=== PATIENT | male | born 1950 | race Caucasian/White ===

== ENCOUNTER → 2017-05-29 | Outpatient (CLI) | payer BC, MEDICARE ==
[~2017-05-29] MED LIST: ACET325 PO; ASPI325 PO; Aspirin EC325 MG PO; BYETTA; Bactrim Ds Tab1 EACH PO; Budeprion Sr150 MG PO; CYAN1000 PO; DOCSEN PO; DULO30 PO; FISH1000 PO; GABA300 PO; HYDCHL12.5 PO; Humalog100 UNIT/1 SC; INSULANPEN SC; LAVAP17G PO; LEVFLO500 PO; LISI20 PO; METF850 PO; METO50 PO; Oxycodone HCl5 M1 PO; PANT40 PO; SILD50TA; Silvadene20 GM TOP; TRAM50 PO; TRAZ100 PO
[2017-05-29 13:01] LABS: BASOPHILS ABSOLUTE AUTO 0.05 K/mm3 (0.00-0.23); BASOPHILS PERCENT AUTO 1 % (0-2); EOSINOPHILS ABSOLUTE AUTO 0.13 K/mm3 (0.00-0.68); EOSINOPHILS PERCENT AUTO 2 % (0-6); IMMATURE GRAN ABSOLUTE AUTO 0.01 K/mm3 (0.00-0.10); IMMATURE GRAN PERCENT AUTO 0 % (0-1); LYMPHOCYTES ABSOLUTE AUTO 1.25 K/mm3 (0.84-5.20); LYMPHOCYTES PERCENT AUTO 22 % (21-46); MONOCYTES ABSOLUTE AUTO 0.44 K/mm3 (0.16-1.47); MONOCYTES PERCENT AUTO 8 % (4-13); Mean Corpuscular HGB 25.3 pg (26.0-34.0); Mean Corpuscular HGB Conc 32.5 g/dL (31.5-36.5); Mean Corpuscular Volume 78 fL (80-100); Mean Platelet Volume 8.8 fL (9.1-12.4); NEUTROPHILS ABSOLUTE AUTO 3.75 K/mm3 (1.96-9.15); NEUTROPHILS PERCENT AUTO 67 % (41-73); Platelet Count 213 K/mm3 (150-400); RDW Coefficient Variation 14.6 % (11.7-14.2); RDW Standard Deviation 40.7 fL (35.1-46.3); Red Blood Cell Count 5.13 M/mm3 (4.30-5.90); White Blood Cell Count 5.63 K/mm3 (4.00-11.30)
[2017-05-29 13:11] LABS: Anion Gap 6 mmol/L (6-16); Blood Urea Nitrogen 18 mg/dL (8-24); Bun/Creatinine Ratio 17.5 (12.0-20.0); CO2, Blood 30 mmol/L (21-32); Calcium, Blood 8.9 mg/dL (8.5-10.1); Chloride, Blood 94 mmol/L (98-108); Creatinine, Blood 1.03 mg/dL (0.60-1.20); Glomerular Filtration Rate >60 (60-); Glucose, Blood 390 mg/dL (70-99); Potassium, Blood 4.5 mmol/L (3.5-5.5); Sodium, Blood 130 mmol/L (136-145)
== END | disposition home or self-care (01) ==
LOC: LAB SHORT 12:47 → LAB EV 12:47
PROVIDERS: Physician Assistant Medical
DX: L03.031 Cellulitis of right toe (principal)
CPT/HCPCS: 80048; 85025; 87070; 87205

== ENCOUNTER 2017-07-12 06:55 | Day surgery (SDC) | payer BC, MEDICARE ==
[~2017-07-12] VITALS: Ht 177.8 cm; Wt 110.9 kg
[2017-07-12] MEDS ORDERED: ALBU90OI61 INH (08:14)
[2017-07-12] MEDS ORDERED: SILD50TA PO (08:14)
[2017-07-12] MEDS ORDERED: Humalog100 UNIT/1 SC (08:15)
[2017-07-12] MEDS ORDERED: Omeprazole20 M1 PO (08:15)
[2017-07-12] MEDS ORDERED: CLOP75 PO (13:01)
[2017-07-12] MEDS ORDERED: ATOR40TA PO (13:02)
== END 2017-07-12 17:15 | disposition home or self-care (01) ==
LOC: MHTC 06:55
PROC: 047T3ZZ Dilation of Right Peroneal Artery, Percutaneous Approach (ICD-10-PCS; principal; 2017-07-12)
PROC: 04CT3ZZ Extirpation of Matter from Right Peroneal Artery, Percutaneous Approach (ICD-10-PCS; principal; 2017-07-12)
DX: E11.51 Type 2 diabetes mellitus with diabetic peripheral angiopathy without gangrene (principal); I70.235 Atherosclerosis of native arteries of right leg with ulceration of other part of foot; L97.519 Non-pressure chronic ulcer of other part of right foot with unspecified severity; I87.2 Venous insufficiency (chronic) (peripheral); I10 Essential (primary) hypertension; I48.91 Unspecified atrial fibrillation; Z87.891 Personal history of nicotine dependence; E11.40 Type 2 diabetes mellitus with diabetic neuropathy, unspecified
CPT/HCPCS: 37228; 37229; 37233; 75630; 75774; 82947; 85347; 99152; 99153; C1725; C1769; C1885; C1887; J1644; J2250; J2720; J3010; J7030; J7040; Q9967

== ENCOUNTER 2020-09-13 12:25 | Emergency (ER) | payer MEDICARE, BC ==
[~2020-09-13] VITALS: Ht 180.3 cm; Wt 113.4 kg
[~2020-09-13 12:25] MED LIST changes: +ALBU90OI61 INH; +ATOR40TA PO; +CLOP75 PO; +Omeprazole20 M1 PO; +SILD50TA PO
[2020-09-13 13:04] LABS: BASOPHILS ABSOLUTE AUTO 0.04 K/mm3 (0.00-0.23); BASOPHILS PERCENT AUTO 1 % (0-2); EOSINOPHILS PERCENT AUTO 2 % (0-6); Hematocrit 40.6 % (37.0-53.0); IMMATURE GRAN ABSOLUTE AUTO 0.02 K/mm3 (0.00-0.10); IMMATURE GRAN PERCENT AUTO 0 % (0-1); LYMPHOCYTES ABSOLUTE AUTO 1.45 K/mm3 (0.84-5.20); LYMPHOCYTES PERCENT AUTO 23 % (21-46); MONOCYTES ABSOLUTE AUTO 0.63 K/mm3 (0.16-1.47); MONOCYTES PERCENT AUTO 10 % (4-13); Mean Corpuscular Volume 78 fL (80-100); Mean Platelet Volume 8.6 fL (9.1-12.4); NEUTROPHILS ABSOLUTE AUTO 3.99 K/mm3 (1.96-9.15); NEUTROPHILS PERCENT AUTO 64 % (41-73); Platelet Count 231 K/mm3 (150-400); RDW Coefficient Variation 14.8 % (11.7-14.2); RDW Standard Deviation 41.6 fL (35.1-46.3); White Blood Cell Count 6.23 K/mm3 (4.00-11.30)
[2020-09-13 13:20] LABS: Alanine Aminotransfer (ALT/SGP 26 U/L (12-78); Albumin, Blood 3.4 g/dL (3.4-5.0); Albumin/Globulin Ratio 0.8 (0.8-1.8); Alk Phos 73 U/L (50-136); Anion Gap 6 mmol/L (6-16); Aspartate Aminotrans (AST/SGOT 23 U/L (12-37); Bilirubin, Total 0.5 mg/dL (0.1-1.0); Blood Urea Nitrogen 17 mg/dL (8-24); Bun/Creatinine Ratio 22.8 (12.0-20.0); CO2, Blood 27 mmol/L (21-32); Calcium, Blood 9.3 mg/dL (8.5-10.1); Chloride, Blood 97 mmol/L (98-108); Creatinine, Blood 0.75 mg/dL (0.60-1.20); Globulin, Blood 4.3 g/dL (2.2-4.0); Glomerular Filtration Rate >60 (60-); Glucose, Blood 373 mg/dL (70-99); Potassium, Blood 4.7 mmol/L (3.5-5.5); Sodium, Blood 130 mmol/L (136-145); Total Protein, Blood 7.7 g/dL (6.4-8.2); Troponin I <0.015 ng/mL (0.000-0.040)
== END 2020-09-13 15:52 | disposition home or self-care (01) ==
LOC: ER 12:25
PROVIDERS: Physician Assistant
DX: R07.89 Other chest pain (principal); E11.9 Type 2 diabetes mellitus without complications; Z79.4 Long term (current) use of insulin; Z87.891 Personal history of nicotine dependence
CPT/HCPCS: 36415; 71046; 80053; 83880; 84484; 85025; 93005; 93010; 99285-25

== ENCOUNTER 2021-02-02 07:33 | Day surgery (SDC) | payer MEDICARE, BC ==
[~2021-02-02] VITALS: Ht 180.3 cm; Wt 112.0 kg
[~2021-02-02 07:33] MED LIST changes: +DULO60 PO; +ZALE10 PO
--- NOTE | 2021-02-02 13:20 | NUR ---
PT UP AND DRESSED. DISCHARGE INSTRUCTIONS REVIEWED WITH PT, VERBALIZES UNDERSTANDING OF INSTRUCTIONS. SALINE LOCK REMOVED WITH CATHETER INTACT. PT TO BATHROOM, GROIN SITE STABLE. PT DISCHARGED PER W/C WITH ONE STAFF. INSTRUCTIONS ALSO REVIEWED WITH , VERBALIZES UNDERSTANDING.
== END 2021-02-02 13:30 | disposition home or self-care (01) ==
LOC: MHTC 07:33
DX: E11.51 Type 2 diabetes mellitus with diabetic peripheral angiopathy without gangrene (principal); I70.212 Atherosclerosis of native arteries of extremities with intermittent claudication, left leg; I10 Essential (primary) hypertension; K21.9 Gastro-esophageal reflux disease without esophagitis; I48.91 Unspecified atrial fibrillation; E78.5 Hyperlipidemia, unspecified; E11.40 Type 2 diabetes mellitus with diabetic neuropathy, unspecified; Z95.820 Peripheral vascular angioplasty status with implants and grafts; Z79.4 Long term (current) use of insulin; Z86.19 Personal history of other infectious and parasitic diseases; Z87.891 Personal history of nicotine dependence
CPT/HCPCS: 76937; 82947; 99152; 99153; C1769; C1887; J1644; J2250; J3010; J7030; Q9967

== ENCOUNTER 2021-03-01 17:36 | Inpatient (IN) | payer MEDICARE, BC ==
[~2021-03-01] VITALS: Ht 180.3 cm; Wt 111.6 kg
[2021-03-01 18:26] LABS: BASOPHILS ABSOLUTE AUTO 0.06 K/mm3 (0.00-0.23); BASOPHILS PERCENT AUTO 1 % (0-2); EOSINOPHILS ABSOLUTE AUTO 0.08 K/mm3 (0.00-0.68); EOSINOPHILS PERCENT AUTO 1 % (0-6); Hematocrit 44.7 % (37.0-53.0); Hemoglobin 14.1 g/dL (13.5-17.5); IMMATURE GRAN ABSOLUTE AUTO 0.02 K/mm3 (0.00-0.10); IMMATURE GRAN PERCENT AUTO 0 % (0-1); LYMPHOCYTES ABSOLUTE AUTO 1.26 K/mm3 (0.84-5.20); LYMPHOCYTES PERCENT AUTO 18 % (21-46); MONOCYTES ABSOLUTE AUTO 0.59 K/mm3 (0.16-1.47); MONOCYTES PERCENT AUTO 9 % (4-13); Mean Corpuscular HGB 24.9 pg (26.0-34.0); Mean Corpuscular HGB Conc 31.5 g/dL (31.5-36.5); Mean Corpuscular Volume 79 fL (80-100); Mean Platelet Volume 8.9 fL (9.1-12.4); NEUTROPHILS ABSOLUTE AUTO 4.89 K/mm3 (1.96-9.15); NEUTROPHILS PERCENT AUTO 71 % (41-73); Platelet Count 240 K/mm3 (150-400); RDW Coefficient Variation 14.6 % (11.7-14.2); RDW Standard Deviation 41.5 fL (35.1-46.3); Red Blood Cell Count 5.67 M/mm3 (4.30-5.90)
[2021-03-01 19:01] LABS: Alanine Aminotransfer (ALT/SGP 37 U/L (12-78); Albumin, Blood 3.3 g/dL (3.4-5.0); Albumin/Globulin Ratio 0.8 (0.8-1.8); Alk Phos 84 U/L (50-136); Anion Gap 8 mmol/L (6-16); Aspartate Aminotrans (AST/SGOT 37 U/L (12-37); Bilirubin, Total 0.4 mg/dL (0.1-1.0); Blood Urea Nitrogen 21 mg/dL (8-24); Bun/Creatinine Ratio 26.8 (12.0-20.0); CO2, Blood 25 mmol/L (21-32); Calcium, Blood 9.4 mg/dL (8.5-10.1); Chloride, Blood 98 mmol/L (98-108); Creatinine, Blood 0.78 mg/dL (0.60-1.20); Globulin, Blood 4.4 g/dL (2.2-4.0); Glomerular Filtration Rate >60 (60-); Glucose, Blood 471 mg/dL (70-99); Potassium, Blood 4.7 mmol/L (3.5-5.5); Sodium, Blood 131 mmol/L (136-145); Total Protein, Blood 7.7 g/dL (6.4-8.2)
[2021-03-01 20:55] LABS: Influenza A, PCR NEGATIVE (NEGATIVE); Influenza B, PCR NEGATIVE (NEGATIVE); Resp Syncytial Virus, PCR NEGATIVE (NEGATIVE); SARS-Cov-2 (COVID-19) PCR, MMC NEGATIVE (NEGATIVE)
[2021-03-01 21:07] LABS: Anti-Xa UFH, PHA Monitoring <0.10 IU/mL; International Normalized Ratio 0.99; Prothrombin Time Results 10.4 Sec (9.7-11.5)
[2021-03-01] MEDS ORDERED: GABA300 PO ×2 (21:36→21:37)
[2021-03-01] MEDS ORDERED: HUMALOG KW100 UNIT/1 SC (21:39)
[2021-03-01] MEDS ORDERED: INSULANI SC (21:40)
[2021-03-02 03:47] LABS: BASOPHILS ABSOLUTE AUTO 0.04 K/mm3 (0.00-0.23); BASOPHILS PERCENT AUTO 1 % (0-2); EOSINOPHILS ABSOLUTE AUTO 0.13 K/mm3 (0.00-0.68); EOSINOPHILS PERCENT AUTO 2 % (0-6); Hemoglobin 12.7 g/dL (13.5-17.5); IMMATURE GRAN ABSOLUTE AUTO 0.01 K/mm3 (0.00-0.10); IMMATURE GRAN PERCENT AUTO 0 % (0-1); LYMPHOCYTES ABSOLUTE AUTO 1.83 K/mm3 (0.84-5.20); LYMPHOCYTES PERCENT AUTO 27 % (21-46); MONOCYTES ABSOLUTE AUTO 0.73 K/mm3 (0.16-1.47); MONOCYTES PERCENT AUTO 11 % (4-13); Mean Corpuscular HGB Conc 31.8 g/dL (31.5-36.5); Mean Corpuscular Volume 79 fL (80-100); Mean Platelet Volume 8.9 fL (9.1-12.4); NEUTROPHILS ABSOLUTE AUTO 3.97 K/mm3 (1.96-9.15); NEUTROPHILS PERCENT AUTO 59 % (41-73); Platelet Count 203 K/mm3 (150-400); RDW Coefficient Variation 14.6 % (11.7-14.2); RDW Standard Deviation 42.2 fL (35.1-46.3); Red Blood Cell Count 5.08 M/mm3 (4.30-5.90); White Blood Cell Count 6.71 K/mm3 (4.00-11.30)
[2021-03-02 04:07] LABS: Alanine Aminotransfer (ALT/SGP 36 U/L (12-78); Albumin, Blood 2.8 g/dL (3.4-5.0); Albumin/Globulin Ratio 0.7 (0.8-1.8); Alk Phos 72 U/L (50-136); Anion Gap 6 mmol/L (6-16); Aspartate Aminotrans (AST/SGOT 45 U/L (12-37); Bilirubin, Total 0.4 mg/dL (0.1-1.0); Blood Urea Nitrogen 20 mg/dL (8-24); Bun/Creatinine Ratio 28.4 (12.0-20.0); CO2, Blood 27 mmol/L (21-32); Calcium, Blood 9.1 mg/dL (8.5-10.1); Chloride, Blood 103 mmol/L (98-108); Glomerular Filtration Rate >60 (60-); Glucose, Blood 303 mg/dL (70-99); Magnesium, Blood 1.8 mg/dL (1.6-2.4); Sodium, Blood 136 mmol/L (136-145); Total Protein, Blood 6.8 g/dL (6.4-8.2)
--- NOTE | 2021-03-02 06:31 | NUR ---
SHIFT SUMMARY PATIENT ADMITTED TO FLOOR AT APPROX 2145 AND FOUND TO BE A&OX4 WITH CHEST PAIN RESOLVED. 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 VSS. ON RA. NSR IN THE 80'S. UP WITH STAND BY ASSIST TO BATHROOM. HEPARIN BOLUS GIVEN AND NOW RUNNING PER ORDER. TROPONIN STILL TRENDING UP. REALIZED A 3RD TROP HAD NOT BEEN ORDERED AND ADDED ON TO OTHER MORNING LABS. STILL PENDING AT THIS TIME. PATIENT STILL RESTING COMFORTABLY IN BED. NPO AFTER MIDNIGHT EXCEPT FOR LITTLE ICE CHIPS. NO GI OR VOIDING ISSUES NOTED. NO ACUTE CONCERNS AT THIS TIME. WILL CONTINUE PLAN OF CARE UNTIL REPORT GIVEN TO DAYSHIFT RN.
--- NOTE | 2021-03-02 18:21 | NUR ---
SHIFT SUMMARY PT WAS TAKEN TO THE HEART CENTER THIS AM AND WAS RETURNED BEFORE THE PROCEDURE COULD BE STARTED. PT WENT TO HEART CENTER AGAIN AT RETURNED TO ROOM AT APPROXIMATELY 1500. FEMORAL SITE DRESSING C/D/I, NO HEMATOMA OR TENDERNESS, DISTAL PULSES PRESENT AND EQUAL BILATERALLY. RIGHT RADIAL SITE DRESSING C/D/I, ALL AIR REMOVED FROM TR BAND OF 1817. NO TENDERNESS OR NUMBNESS, DISTAL PULSES PRESENT AND EQUAL. PT C/O MILD HEADACHE AFTER RETURNING FROM HEART CENTER, TREATED PER EMAR. SBP 116-144, ALL OTHER VITAL SIGNS STABLE. PT DENIED C/O CP.
[2021-03-03 05:57] LABS: BASOPHILS ABSOLUTE AUTO 0.03 K/mm3 (0.00-0.23); BASOPHILS PERCENT AUTO 1 % (0-2); EOSINOPHILS ABSOLUTE AUTO 0.17 K/mm3 (0.00-0.68); EOSINOPHILS PERCENT AUTO 3 % (0-6); Hematocrit 39.5 % (37.0-53.0); Hemoglobin 12.2 g/dL (13.5-17.5); IMMATURE GRAN ABSOLUTE AUTO 0.02 K/mm3 (0.00-0.10); IMMATURE GRAN PERCENT AUTO 0 % (0-1); LYMPHOCYTES ABSOLUTE AUTO 1.39 K/mm3 (0.84-5.20); LYMPHOCYTES PERCENT AUTO 23 % (21-46); MONOCYTES PERCENT AUTO 12 % (4-13); Mean Corpuscular HGB 24.8 pg (26.0-34.0); Mean Corpuscular HGB Conc 30.9 g/dL (31.5-36.5); Mean Corpuscular Volume 80 fL (80-100); Mean Platelet Volume 9.1 fL (9.1-12.4); NEUTROPHILS ABSOLUTE AUTO 3.72 K/mm3 (1.96-9.15); NEUTROPHILS PERCENT AUTO 62 % (41-73); Platelet Count 203 K/mm3 (150-400); RDW Coefficient Variation 14.9 % (11.7-14.2); RDW Standard Deviation 43.7 fL (35.1-46.3); Red Blood Cell Count 4.91 M/mm3 (4.30-5.90); White Blood Cell Count 6.03 K/mm3 (4.00-11.30)
--- NOTE | 2021-03-03 06:14 | NUR ---
SHIFT SUMMARY ASSUMED CARE OF PT AT 1900. PT IS A/OX4. HEART SOUNDS REGULAR, LUNG SOUNDS CLEAR. PT RADIAL AND GROIN SITE SOFT AND NON TENDER. PT WAS RESTARTED ON HEPRIN AT 2330. PT WAS INDEPENT TO BATHROOM BUT USED THE URINAL ALSO. NO COMPLAINTS OF CP. CALL LIGHT IN REACH, BED IN LOWEST POSTION.
[2021-03-03 06:47] LABS: Anion Gap 11 mmol/L (6-16); Blood Urea Nitrogen 24 mg/dL (8-24); Bun/Creatinine Ratio 30.8 (12.0-20.0); CO2, Blood 24 mmol/L (21-32); Calcium, Blood 8.5 mg/dL (8.5-10.1); Chloride, Blood 100 mmol/L (98-108); Creatinine, Blood 0.78 mg/dL (0.60-1.20); Glomerular Filtration Rate >60 (60-); Glucose, Blood 328 mg/dL (70-99); Potassium, Blood 4.8 mmol/L (3.5-5.5); Sodium, Blood 135 mmol/L (136-145)
--- NOTE | 2021-03-03 11:31 | NUR ---
Spiritual care visit conducted. Pateint is lying in bed and alert. Patient immediately tells me about his medical issues and the plan going forward. Patient talks about his Christain mandy and how he has absolute peace about and dying but he is a bit pain adverse and would rather avoid it. I speak to him about the quality of care he is receiving and that from start to finish his pain levels and discomfort will be monitored and appropriate care will be administered. He also states that he would love to "stick around" for his , kids and grandkids. He tells me that the family is worried but is praying and is optimistic. I reinforce helpful attitudes and practices, normalize his experience and provide therapeutic listening, recitation of scripture and prayer. Patient responds well and shows signs of increased peace.
--- NOTE | 2021-03-03 13:25 | NUR ---
Provided heart healthy diet education for patient. Pt reported that he was unfamiliar with foods that were good or bad for heart health. Discussed impact of saturated vs unsaturated fat and common sources. Discussed sodium recommendations. Encouraged pt to eat more whoel grains and reviewed sources. Pt eats cheerios for breakfast most mornings. Informed pt that this is a great source of whoel grains, but cautioned against extra added sugar from eating the frosted version. Pt's prepares their meals, so pt compliance with dietary recommendations will be impacted by her. Provided pt with a handout of seasoning/cooking tips to reduce sodium. Pt acknowledges importance of dietary change for improving his heart health and plans to make changes when he gets home from the hospital.
[2021-03-04 02:16] LABS: BASOPHILS ABSOLUTE AUTO 0.04 K/mm3 (0.00-0.23); BASOPHILS PERCENT AUTO 1 % (0-2); EOSINOPHILS ABSOLUTE AUTO 0.16 K/mm3 (0.00-0.68); EOSINOPHILS PERCENT AUTO 3 % (0-6); Hematocrit 39.3 % (37.0-53.0); Hemoglobin 12.3 g/dL (13.5-17.5); IMMATURE GRAN ABSOLUTE AUTO 0.02 K/mm3 (0.00-0.10); IMMATURE GRAN PERCENT AUTO 0 % (0-1); LYMPHOCYTES PERCENT AUTO 27 % (21-46); MONOCYTES PERCENT AUTO 12 % (4-13); Mean Corpuscular HGB 25.1 pg (26.0-34.0); Mean Corpuscular HGB Conc 31.3 g/dL (31.5-36.5); Mean Corpuscular Volume 80 fL (80-100); Mean Platelet Volume 9.1 fL (9.1-12.4); NEUTROPHILS ABSOLUTE AUTO 3.47 K/mm3 (1.96-9.15); NEUTROPHILS PERCENT AUTO 58 % (41-73); Platelet Count 215 K/mm3 (150-400); RDW Coefficient Variation 14.6 % (11.7-14.2); RDW Standard Deviation 42.5 fL (35.1-46.3); Red Blood Cell Count 4.91 M/mm3 (4.30-5.90); White Blood Cell Count 5.99 K/mm3 (4.00-11.30)
[2021-03-04 03:17] LABS: Anion Gap 9 mmol/L (6-16); Blood Urea Nitrogen 25 mg/dL (8-24); Bun/Creatinine Ratio 31.2 (12.0-20.0); CO2, Blood 28 mmol/L (21-32); Calcium, Blood 8.8 mg/dL (8.5-10.1); Chloride, Blood 101 mmol/L (98-108); Glomerular Filtration Rate >60 (60-); Glucose, Blood 190 mg/dL (70-99); Sodium, Blood 138 mmol/L (136-145)
--- NOTE | 2021-03-04 05:44 | NUR ---
SHIFT SUMMARY ASSUMED CARE OF PT AT 1900. PT IS A/OX4. HEART SOUNDS REGULAR, NO CP. LUNG SOUNDS CLEAR. PT HEPRIN WAS THERAPUTIC T/O THE NIGHT. PT C/O HEADACHE, MEDICATED PER EMAR. NO OTHER EVENTS. CALL LIGHT IN REACH, BED IN LOWEST POSTION.
--- NOTE | 2021-03-04 10:24 | NUR ---
COBRA TRANSFER PT A&O X4. VSS. SPO2 > 92% ON RA. MONITOR SHOWING SR, HR 60's-80's. PT DENYING CP THIS SHIFT W/ ONLY C/O BACK PAIN THAT PT REPORTS CHRONIC. PT TAKEN BY EMS TRANSPORT TO [facility] IN [place] @ APPROX 1020 W/ HEPARIN GTT INFUSING. REPORT GIVEN TO ACCEPTING RN @ [facility] PRIOR TO PT DEPARTURE.
== END 2021-03-04 10:34 | disposition short-term general hospital (02) | DRG 251 ==
LOC: ER 17:36 → PCU 22:00
PROVIDERS: Family Medicine; Physician Assistant; Student in an Organized Health Care Education/Training Program; ADMIT Internal Medicine
PROC: 4A023N7 Measurement of Cardiac Sampling and Pressure, Left Heart, Percutaneous Approach (ICD-10-PCS; principal; 2021-03-02)
PROC: B2111ZZ Fluoroscopy of Multiple Coronary Arteries using Low Osmolar Contrast (ICD-10-PCS; 2021-03-02)
PROC: B41JYZZ Fluoroscopy of Other Lower Arteries using Other Contrast (ICD-10-PCS; 2021-03-02)
PROC: 02703ZZ Dilation of Coronary Artery, One Artery, Percutaneous Approach (ICD-10-PCS; 2021-03-02)
DX: I21.4 Non-ST elevation (NSTEMI) myocardial infarction (principal); E87.1 Hypo-osmolality and hyponatremia; I45.2 Bifascicular block; I16.1 Hypertensive emergency; I10 Essential (primary) hypertension; F32.A Depression, unspecified; Z20.822 Contact with and (suspected) exposure to COVID-19; E11.40 Type 2 diabetes mellitus with diabetic neuropathy, unspecified; G47.00 Insomnia, unspecified; G89.29 Other chronic pain; M54.9 Dorsalgia, unspecified; E78.5 Hyperlipidemia, unspecified; I25.10 Atherosclerotic heart disease of native coronary artery without angina pectoris; K74.60 Unspecified cirrhosis of liver; B18.2 Chronic viral hepatitis C; Z90.49 Acquired absence of other specified parts of digestive tract; Z87.891 Personal history of nicotine dependence; Z79.4 Long term (current) use of insulin; Z79.899 Other long term (current) drug therapy
CPT/HCPCS: 0241U; 36415; 71046; 76937; 80048; 80053; 80061; 80076; 82947; 83690; 83735; 84484; 85007; 85025; 85027; 85347; 85520; 85610; 85730; 92920; 93005; 93010; 93454; 93571; 94762; 96365; 96376; 99152; 99153; 99285-25; A9270; C1725; C1753; C1760; C1769; C1887; C1894; J1644; J1815; J1940; J2250; J2270; J3010; J7030; J7050; Q9967; U0003

== ENCOUNTER 2021-03-26 17:46 | Emergency (ER) | payer MEDICARE, BC ==
[~2021-03-26] VITALS: Ht 180.3 cm; Wt 104.8 kg
[~2021-03-26 17:46] MED LIST changes: +HUMALOG KW100 UNIT/1 SC; +INSULANI SC
[2021-03-26 18:41] LABS: BASOPHILS ABSOLUTE AUTO 0.04 K/mm3 (0.00-0.23); BASOPHILS PERCENT AUTO 1 % (0-2); EOSINOPHILS ABSOLUTE AUTO 0.29 K/mm3 (0.00-0.68); EOSINOPHILS PERCENT AUTO 5 % (0-6); Hematocrit 36.2 % (37.0-53.0); Hemoglobin 10.9 g/dL (13.5-17.5); IMMATURE GRAN ABSOLUTE AUTO 0.03 K/mm3 (0.00-0.10); IMMATURE GRAN PERCENT AUTO 1 % (0-1); LYMPHOCYTES ABSOLUTE AUTO 1.26 K/mm3 (0.84-5.20); LYMPHOCYTES PERCENT AUTO 20 % (21-46); MONOCYTES ABSOLUTE AUTO 0.59 K/mm3 (0.16-1.47); MONOCYTES PERCENT AUTO 9 % (4-13); Mean Corpuscular HGB Conc 30.1 g/dL (31.5-36.5); Mean Corpuscular Volume 80 fL (80-100); Mean Platelet Volume 8.8 fL (9.1-12.4); NEUTROPHILS ABSOLUTE AUTO 4.24 K/mm3 (1.96-9.15); NEUTROPHILS PERCENT AUTO 66 % (41-73); Platelet Count 379 K/mm3 (150-400); RDW Coefficient Variation 15.3 % (11.7-14.2); Red Blood Cell Count 4.55 M/mm3 (4.30-5.90); White Blood Cell Count 6.45 K/mm3 (4.00-11.30)
[2021-03-26 18:55] LABS: Anion Gap 9 mmol/L (6-16); Blood Urea Nitrogen 18 mg/dL (8-24); Bun/Creatinine Ratio 24.8 (12.0-20.0); CO2, Blood 25 mmol/L (21-32); Calcium, Blood 8.8 mg/dL (8.5-10.1); Chloride, Blood 98 mmol/L (98-108); Creatinine, Blood 0.73 mg/dL (0.60-1.20); Glomerular Filtration Rate >60 (60-); Glucose, Blood 473 mg/dL (70-99); Potassium, Blood 4.1 mmol/L (3.5-5.5); Sodium, Blood 132 mmol/L (136-145)
[2021-03-26] MEDS ORDERED: ROBITUSSIN100 MG/5 M PO (20:45)
[2021-03-26] MEDS ORDERED: Amoxicillin875 MG PO (20:45)
== END 2021-03-26 20:55 | disposition home or self-care (01) ==
LOC: ER 17:46
PROVIDERS: Student in an Organized Health Care Education/Training Program
DX: R05.9 Cough, unspecified (principal); E87.1 Hypo-osmolality and hyponatremia; E11.40 Type 2 diabetes mellitus with diabetic neuropathy, unspecified; I10 Essential (primary) hypertension; Z79.899 Other long term (current) drug therapy; Z79.4 Long term (current) use of insulin; Z87.891 Personal history of nicotine dependence
CPT/HCPCS: 36415; 71046; 80048; 84484; 85025; 93005; 93010; 99283-25; A9270

== ENCOUNTER 2022-07-31 07:47 | Day surgery (SDC) | payer MEDICARE, BC ==
[2022-07-31] VITALS (9 sets, daily range): BP systolic 129–168; BP diastolic 87–108
[~2022-07-31] VITALS: Ht 180.3 cm; Wt 116.6 kg
[~2022-07-31 07:47] MED LIST changes: +ALBU90OI INH; +ASPI81CH PO; +Amoxicillin875 MG PO; +ROBITUSSIN100 MG/5 M PO
--- NOTE | 2022-07-31 08:27 | NUR ---
DR. PEREZ IN TO ASSESS PT. CONSENT IS SIGNED. PT PREPPED FOR PROCEDURE.
--- NOTE | 2022-07-31 10:20 | NUR ---
PATIENT ARRIVED TO RECOVERY ROOM LAYING FLAT IN BED, CONVERSING APPROPRIATELY. R ANGIOSEAL IN PLACE, SITE C/D/I SOFT/NONTENDER, NO EVIDENCE OF BLEEDING. PATIENT DENYING ANY PAIN. VSS ON ROOM AIR.
--- NOTE | 2022-07-31 11:00 | NUR ---
PATIENT HOB ELEVATED 30 DEGREES. SITE C/D/I SOFT/NONTENDER, NO EVIDENCE OF BLEEDING. PATIENT TOELRATING PO INTAKE WELL. VSS ON ROOM AIR. PATIENT DENYIING ANY PAIN. PHARMACY CALLED WITH NEW PRESCRIPTION.
[2022-07-31] MEDS ORDERED: CLOP75 PO (11:07)
--- NOTE | 2022-07-31 12:33 | NUR ---
PATIENT RESTING COMFORTABLY IN BED. GROIN SITE C/D/I SOFT/NONTENDER, NO EVIDENCE OF HEMATOMA. VSS ON RA.
--- NOTE | 2022-07-31 13:15 | NUR ---
PATIENT DISCHARGED HOME AT THIS TIME. R GROIN SITE C/D/I SOFT/NONTENDER. PATIENT AMBULATING WITHOUT DIFFICULTY. PATIENT DENYING ANY PAIN. PIV REMOVED WITHOUT DIFFICULTY. DISCHARGE PAPERWORK AND INSTRUCTIONS REVIEWED WITH PATIENT. VSS ON ROOM AIR SPOUSE ABLE TO PROVIDE TRANSPORTATION HOME. PATIENT WHEELED TO HOSPITAL ENTRANCE.
== END 2022-07-31 13:58 | disposition home or self-care (01) ==
LOC: MHTC 07:47
DX: I70.229 Atherosclerosis of native arteries of extremities with rest pain, unspecified extremity (principal); E11.9 Type 2 diabetes mellitus without complications; K21.9 Gastro-esophageal reflux disease without esophagitis; I10 Essential (primary) hypertension; Z87.891 Personal history of nicotine dependence; Z88.6 Allergy status to analgesic agent; Z79.82 Long term (current) use of aspirin
CPT/HCPCS: 76937; 99152; 99153; C1725; C1760; C1769; C1887; C1894; J1644; J2250; J3010; J7030; J7050; Q9967

== ENCOUNTER 2024-07-09 11:51 | Day surgery (SDC) | payer MEDICARE, BC ==
[2024-07-09] VITALS (7 sets, daily range): BP systolic 122–168; BP diastolic 68–93
[~2024-07-09] VITALS: Ht 180.3 cm; Wt 117.9 kg
[~2024-07-09 11:51] MED LIST changes: +BELSOMRA10 MG PO; +ESZO3 PO; +Seroquel Xr50 MG PO; +TRULICITY0.75 MG/01 SQ
[2024-07-09] MEDS ORDERED: NS 250 ML IV ONE (14:32)
[2024-07-09] MEDS ORDERED: Heparin Sodium 1000 Units/ML 10ML MDV ONE ×2 (14:32→15:03)
[2024-07-09] MEDS ORDERED: Nitroglycerin 2 MG/20 ML BTL ONE (14:33)
[2024-07-09] MEDS ORDERED: Midazolam HCl 1MG / ML 2ML Vial ONE (14:33)
[2024-07-09] MEDS ORDERED: FentaNYL Citrate 50 MCG/ML 2 ML Injection ONE (14:33)
[2024-07-09] MEDS ORDERED: NS 2,000 ML IV ONE (14:33)
[2024-07-09] MEDS ORDERED: HydrALAZINE HCl 20 MG / ML 1ML Vial ONE ×2 (14:59→15:23)
== END 2024-07-09 18:05 | disposition home or self-care (01) ==
LOC: MHTC 11:51
DX: E11.51 Type 2 diabetes mellitus with diabetic peripheral angiopathy without gangrene (principal); I70.203 Unspecified atherosclerosis of native arteries of extremities, bilateral legs; I25.10 Atherosclerotic heart disease of native coronary artery without angina pectoris; I10 Essential (primary) hypertension; E78.5 Hyperlipidemia, unspecified; I48.91 Unspecified atrial fibrillation; K21.9 Gastro-esophageal reflux disease without esophagitis; Z95.1 Presence of aortocoronary bypass graft; Z87.891 Personal history of nicotine dependence; Z79.82 Long term (current) use of aspirin; Z79.4 Long term (current) use of insulin; Z79.899 Other long term (current) drug therapy
CPT/HCPCS: 76937; 82947; 99152; 99153; C1725; C1760; C1769; C1887; C1894; J0360; J1644; J2250; J3010; J7030; J7050; Q9967

== ENCOUNTER 2024-10-27 14:32 | Inpatient (IN) | payer MEDICARE, BC ==
[~2024-10-27] VITALS: Ht 180.3 cm; Wt 118.0 kg
[2024-10-27 16:17] LABS: Alanine Aminotransfer (ALT/SGP 21.0 U/L (12-78); Albumin, Blood 3.3 g/dL (3.4-5.0); Albumin/Globulin Ratio 0.9 (0.8-1.8); Anion Gap 6.0 mmol/L (3-11); Aspartate Aminotrans (AST/SGOT 20.0 U/L (12-37); Bilirubin, Total 0.7 mg/dL (0.1-1.0); Blood Urea Nitrogen 19.0 mg/dL (8-24); CO2, Blood 29.0 mmol/L (21-32); Calcium, Blood 9.1 mg/dL (8.5-10.1); Chloride, Blood 100.0 mmol/L (98-108); Creatinine, Blood 0.82 mg/dL (0.60-1.20); Globulin, Blood 3.6 g/dL (2.2-4.0); Glucose, Blood 247.0 mg/dL (70-99); Potassium, Blood 4.2 mmol/L (3.5-5.5); Sodium, Blood 131.0 mmol/L (136-145); Total Protein, Blood 6.9 g/dL (6.4-8.2)
[2024-10-27 16:23] LABS: BASOPHILS ABSOLUTE AUTO 0.04 K/mm3 (0.00-0.23); BASOPHILS PERCENT AUTO 1 % (0-2); EOSINOPHILS ABSOLUTE AUTO 0.16 K/mm3 (0.00-0.68); EOSINOPHILS PERCENT AUTO 3 % (0-6); Hematocrit 37.9 % (37.0-53.0); Hemoglobin 11.4 g/dL (13.5-17.5); IMMATURE GRAN ABSOLUTE AUTO 0.01 K/mm3 (0.00-0.10); IMMATURE GRAN PERCENT AUTO 0 % (0-1); LYMPHOCYTES ABSOLUTE AUTO 1.66 K/mm3 (0.84-5.20); LYMPHOCYTES PERCENT AUTO 27 % (21-46); MONOCYTES ABSOLUTE AUTO 0.66 K/mm3 (0.16-1.47); MONOCYTES PERCENT AUTO 11 % (4-13); Mean Corpuscular HGB Conc 30.1 g/dL (31.5-36.5); Mean Corpuscular Volume 77 fL (80-100); NEUTROPHILS ABSOLUTE AUTO 3.63 K/mm3 (1.96-9.15); NEUTROPHILS PERCENT AUTO 59 % (41-73); NRBC ABSOLUTE 0.00 K/mm3 (0.00-0.02); NRBC Auto 0.0 /100 WBC (0.0-0.2); Platelet Count 197 K/mm3 (150-400); RDW Coefficient Variation 16.1 % (11.7-14.2); RDW Standard Deviation 45.2 fL (35.1-46.3)
[2024-10-27] MEDS ORDERED: NS 1,000 ML IV SCH ×2 (16:35→18:45)
[2024-10-27] MEDS ORDERED: Ondansetron HCl 2 MG / ML 2ML Vial IV PRN (18:50)
[2024-10-28] MEDS ORDERED: Insulin Human Lispro 100 Units/ML 3ML Syringe SC SCH
[2024-10-28 00:16] VITALS: BP 127/72
[2024-10-28] MEDS ORDERED: FARXIGA10 MG PO (00:40)
[2024-10-28 04:23] VITALS: BP 116/78
--- NOTE | 2024-10-28 04:37 | NUR ---
ADMIT NOTE/BELT GLASS SANDER SUMMARY PT ADMIT FROM ED FOR ACUTE CVA. PT A&OX3 (SELF, PLACE, SITUATION), VSS. PT ORIENTED TO ROOM, CALL LIGHT, SAFETY/FALL PRECAUTIONS. BED SIDE SWALLOW EVAL COMPLETED. NO COUGHING OR CHOKING NOTED, BUT LONG PAUSES BETWEEN SWALLOWS. REMAINS NPO. PT DID VOICE AND WAS NOTED TO HAVE WORSENING LEFT SIDED DEFICITS. NIHSS COMPLETED AND WAS SCORED 9. VERIFIED BY MARGOT DONALD AT BEDSIDE. DR. HAND NOTIFIED OF ACUTE CHANGES, WHO THEN CAME UP TO SEE PT. PT S/SX HAD SLIGHTLY IMPROVED AND WAS SCORED A 6 ON A SUBSEQUENT NIHSS PERFORMED BY DR. HAND. STAT CT ORDERED. NO ACUTE CHANGES NOTED PER PROVIDER NOTE. MRI TO BE COMPLETED IN AM. PT CONTINUES TO HAVE LEFT SIDED DEFICITS WITH NO RESISTANCE TO GRAVITY ON L EXTREMITIES. FOR THAT REASON, HE REMAINS ON BEDREST. PT REMAINS ON TELE. SR AT 74 W/ BBB. PT WAS NOTED TO HAVE AN ABRASION POA ON L BUTTOCK. QUARTER SIZED AND DRY, BUT NO SCABBING. PICS PLACED IN CHART. MEPILEX IN PLACE. DRESSING REMAINS CDI. BED RAILS UP X 2, BED IN LOWEST POSITION, BED WHEELS LOCKED, PERSONAL BELONGINGS AND CALL LIGHT WITHIN REACH FOR SAFETY.
[2024-10-28 05:58] LABS: BASOPHILS ABSOLUTE AUTO 0.04 K/mm3 (0.00-0.23); BASOPHILS PERCENT AUTO 1 % (0-2); EOSINOPHILS ABSOLUTE AUTO 0.18 K/mm3 (0.00-0.68); EOSINOPHILS PERCENT AUTO 3 % (0-6); Hematocrit 40.0 % (37.0-53.0); Hemoglobin 12.4 g/dL (13.5-17.5); IMMATURE GRAN ABSOLUTE AUTO 0.02 K/mm3 (0.00-0.10); IMMATURE GRAN PERCENT AUTO 0 % (0-1); LYMPHOCYTES ABSOLUTE AUTO 1.84 K/mm3 (0.84-5.20); LYMPHOCYTES PERCENT AUTO 33 % (21-46); MONOCYTES ABSOLUTE AUTO 0.65 K/mm3 (0.16-1.47); MONOCYTES PERCENT AUTO 12 % (4-13); Mean Corpuscular HGB Conc 31.0 g/dL (31.5-36.5); Mean Corpuscular Volume 78 fL (80-100); NEUTROPHILS ABSOLUTE AUTO 2.80 K/mm3 (1.96-9.15); NEUTROPHILS PERCENT AUTO 51 % (41-73); NRBC ABSOLUTE 0.00 K/mm3 (0.00-0.02); NRBC Auto 0.0 /100 WBC (0.0-0.2); Platelet Count 182 K/mm3 (150-400); RDW Coefficient Variation 16.4 % (11.7-14.2); RDW Standard Deviation 45.8 fL (35.1-46.3)
[2024-10-28 06:19] LABS: Anion Gap 9.0 mmol/L (3-11); Blood Urea Nitrogen 18.0 mg/dL (8-24); CO2, Blood 29.0 mmol/L (21-32); Calcium, Blood 8.7 mg/dL (8.5-10.1); Chloride, Blood 100.0 mmol/L (98-108); Creatinine, Blood 0.74 mg/dL (0.60-1.20); Glucose, Blood 193.0 mg/dL (70-99); Potassium, Blood 3.6 mmol/L (3.5-5.5); Sodium, Blood 134.0 mmol/L (136-145)
[2024-10-28] MEDS ORDERED: Insulin Glargine-Yfgn 100 Unit/mL 3 ML SYR SC SCH (09:00)
[2024-10-28] MEDS ORDERED: Enoxaparin 40 MG/0.4 ML SYR SC SCH (09:00)
[2024-10-28] MEDS ORDERED: Insulin Glargine 100 Unit/ML 3 ML SYR SC SCH ×2 (09:00)
[2024-10-28 15:49] VITALS: BP 130/88
--- NOTE | 2024-10-28 17:14 | NUR ---
SHIFT SUMMARY NO ACUTE CHANGES, NIHSS SCORE OF 11 TODAY, A/Ox4. Q4H NEURO CHECKS COMPLETED. TOWARDS END OF SHIFT PT ABLE TO LIFT LEFT LEG OFF BED AND HOLD FOR APPROX 5 SECS. LUE CONTINUES TO BE FLACCID. SPEECH EVAL COMPLETED WITH NO PRECAUTIONS ORDERED. PT/OT WORKED WITH PT, PT WILL REMAIN BEDREST WITH ORDERS TO DANGLE AT BEDSIDE FOR MEALS. MRI COMPLETED. ECHO COMPLETED. INSULIN ADMINISTERED PER SLIDING SCALE ALONG WITH LONG ACTING DOSE. PT CURRENTLY RESTING IN BED WITH BED IN LOWEST POSITION AND CALL LIGHT WITHIN REACH, APPEARS TO BE IN DISTRESS WITH RESPIRATIONS EVEN AND UNLABORED, ON RA.
[2024-10-28 19:56] VITALS: BP 152/89
[2024-10-29 02:55] VITALS: BP 173/74
--- NOTE | 2024-10-29 03:05 | NUR ---
CALL PLACED TO RESIDENT: CALL PLACED TO REGARDING HIGH BLOOD PRESSURE OF PT. INFORMED. NO NEW ORDERS PLACED.
--- NOTE | 2024-10-29 03:45 | NUR ---
STRAIGHT CATH: ATTEMPTED TO STRAIGHT CATH PT TWICE. EACH ATTEMPT UNSUCCESSFUL. CALL PLACED TO DR.WANG. GRAHAM TO LOOK AT CHART AND DECIDE WHAT TO DO NEXT.
--- NOTE | 2024-10-29 04:31 | NUR ---
SHIFT SUMMARY: PT IS A0X3. PT IS HERE FOR A STROKE AND HAS A LEFT SIDED DEFICIT OF THE LEG AND ARM. PT IS RETAINING URINE. ATTEMPTED TO STRAIGHT CATH TWICE WITHOUT SUCCESS. PT ABLE TO VOID 300MLS OF [address] BENAVIDES PUT IN A ONE ORDER OF FLOMAX AND SAID HE WILL CONSULT WITH THE DAYSHIFT DOCTORS ABOUT ADDRESSING PTS RETENTION FURTHER. Q4 NEURO CHECKS DONE AND QSHIFT STROKE SCALE COMPLETED.
[2024-10-29 05:55] LABS: BASOPHILS ABSOLUTE AUTO 0.03 K/mm3 (0.00-0.23); BASOPHILS PERCENT AUTO 1 % (0-2); EOSINOPHILS ABSOLUTE AUTO 0.12 K/mm3 (0.00-0.68); EOSINOPHILS PERCENT AUTO 2 % (0-6); Hematocrit 40.6 % (37.0-53.0); Hemoglobin 12.6 g/dL (13.5-17.5); IMMATURE GRAN ABSOLUTE AUTO 0.02 K/mm3 (0.00-0.10); IMMATURE GRAN PERCENT AUTO 0 % (0-1); LYMPHOCYTES ABSOLUTE AUTO 1.46 K/mm3 (0.84-5.20); LYMPHOCYTES PERCENT AUTO 26 % (21-46); MONOCYTES ABSOLUTE AUTO 0.61 K/mm3 (0.16-1.47); MONOCYTES PERCENT AUTO 11 % (4-13); Mean Corpuscular HGB Conc 31.0 g/dL (31.5-36.5); Mean Corpuscular Volume 77 fL (80-100); NEUTROPHILS ABSOLUTE AUTO 3.48 K/mm3 (1.96-9.15); NEUTROPHILS PERCENT AUTO 61 % (41-73); NRBC ABSOLUTE 0.00 K/mm3 (0.00-0.02); NRBC Auto 0.0 /100 WBC (0.0-0.2); Platelet Count 164 K/mm3 (150-400); RDW Coefficient Variation 16.6 % (11.7-14.2); RDW Standard Deviation 45.4 fL (35.1-46.3)
[2024-10-29 06:18] LABS: Alanine Aminotransfer (ALT/SGP 24.0 U/L (12-78); Albumin, Blood 3.3 g/dL (3.4-5.0); Albumin/Globulin Ratio 0.9 (0.8-1.8); Anion Gap 11.0 mmol/L (3-11); Aspartate Aminotrans (AST/SGOT 22.0 U/L (12-37); Bilirubin, Total 1.0 mg/dL (0.1-1.0); Blood Urea Nitrogen 19.0 mg/dL (8-24); CO2, Blood 25.0 mmol/L (21-32); Calcium, Blood 8.3 mg/dL (8.5-10.1); Chloride, Blood 98.0 mmol/L (98-108); Creatinine, Blood 0.77 mg/dL (0.60-1.20); Globulin, Blood 3.7 g/dL (2.2-4.0); Glucose, Blood 219.0 mg/dL (70-99); Potassium, Blood 3.9 mmol/L (3.5-5.5); Sodium, Blood 130.0 mmol/L (136-145); Total Protein, Blood 7.0 g/dL (6.4-8.2)
[2024-10-29 07:21] VITALS: BP 134/73
[2024-10-29] MEDS ORDERED: Insulin Human Lispro 100 Units/ML 3ML Syringe SC SCH ×2 (07:30→11:30)
[2024-10-29] MEDS ORDERED: Insulin Glargine 100 Unit/ML 3 ML SYR SC SCH (09:00)
[2024-10-29 10:25] VITALS: BP 106/95
[2024-10-29 16:33] VITALS: BP 127/82
--- NOTE | 2024-10-29 18:28 | NUR ---
ELEVATED HRB STARTED DURING PT, HR DID NOT COME DOWN AFTER REST, EKG COMPLETED, DR KHALIL CAME TO BEDSIDE AND EVALUATED PT AND REPORT. PT DENIES CP, SOB BUT REPORTS "FEELING HOT," LOTS OF VISITORS AT BEDSIDE, MD ASKED TO BE NOTIFIED IF TACHYCARDIA DOES NOT RESOLVE ON ITS OWN IN REASONABLE TIME.
[2024-10-29 19:54] VITALS: BP 122/71
--- NOTE | 2024-10-29 20:39 | NUR ---
HIGH BLOOD SUGAR: CALL PLACED TO REGARDING A BLOOD SUGAR OF [id number]. NO NEW ORDERS
[2024-10-30 00:04] VITALS: BP 126/69
--- NOTE | 2024-10-30 03:39 | NUR ---
SHIFT SUMMARY: PT IS VOIDING WELL IN A URNIAL WITH AST. Q2 TURNED THROUGHOUT THE SHIFT. PT HAS WEAKNESS ON THE LEFT SIDE OF THE BODY DUE TO A STROKE THAT HE IS ADMITTED FOR. PT TAKES MEDS WHOLE WITH WATER. NIH STROKE ASSESSMENT COMPLETED PER SHIFT AND Q4 NEURO CHECKS COMPLETED. PT IS ABLE TO MAKE NEEDS KNOWN. CALL LIGHT WITH IN REACH.
[2024-10-30 04:51] VITALS: BP 144/79
[2024-10-30 05:05] LABS: BASOPHILS ABSOLUTE AUTO 0.04 K/mm3 (0.00-0.23); BASOPHILS PERCENT AUTO 1 % (0-2); EOSINOPHILS ABSOLUTE AUTO 0.11 K/mm3 (0.00-0.68); EOSINOPHILS PERCENT AUTO 2 % (0-6); Hematocrit 42.0 % (37.0-53.0); Hemoglobin 12.9 g/dL (13.5-17.5); IMMATURE GRAN ABSOLUTE AUTO 0.04 K/mm3 (0.00-0.10); IMMATURE GRAN PERCENT AUTO 1 % (0-1); LYMPHOCYTES ABSOLUTE AUTO 1.46 K/mm3 (0.84-5.20); LYMPHOCYTES PERCENT AUTO 23 % (21-46); MONOCYTES ABSOLUTE AUTO 0.74 K/mm3 (0.16-1.47); MONOCYTES PERCENT AUTO 12 % (4-13); Mean Corpuscular HGB Conc 30.7 g/dL (31.5-36.5); Mean Corpuscular Volume 78 fL (80-100); NEUTROPHILS ABSOLUTE AUTO 4.00 K/mm3 (1.96-9.15); NEUTROPHILS PERCENT AUTO 63 % (41-73); NRBC ABSOLUTE 0.00 K/mm3 (0.00-0.02); NRBC Auto 0.0 /100 WBC (0.0-0.2); Platelet Count 179 K/mm3 (150-400); RDW Coefficient Variation 17.2 % (11.7-14.2); RDW Standard Deviation 45.8 fL (35.1-46.3)
[2024-10-30 05:41] LABS: Alanine Aminotransfer (ALT/SGP 20.0 U/L (12-78); Albumin, Blood 3.5 g/dL (3.4-5.0); Albumin/Globulin Ratio 1.0 (0.8-1.8); Anion Gap 14.0 mmol/L (3-11); Aspartate Aminotrans (AST/SGOT 15.0 U/L (12-37); Bilirubin, Total 0.8 mg/dL (0.1-1.0); Blood Urea Nitrogen 23.0 mg/dL (8-24); CO2, Blood 23.0 mmol/L (21-32); Calcium, Blood 8.7 mg/dL (8.5-10.1); Chloride, Blood 101.0 mmol/L (98-108); Creatinine, Blood 0.76 mg/dL (0.60-1.20); Globulin, Blood 3.6 g/dL (2.2-4.0); Glucose, Blood 298.0 mg/dL (70-99); Potassium, Blood 4.1 mmol/L (3.5-5.5); Sodium, Blood 134.0 mmol/L (136-145); Total Protein, Blood 7.1 g/dL (6.4-8.2)
[2024-10-30 07:11] VITALS: BP 123/75
[2024-10-30] MEDS ORDERED: Insulin Human Lispro 100 Units/ML 3ML Syringe SC SCH (07:30)
[2024-10-30 11:53] VITALS: BP 134/83
--- NOTE | 2024-10-30 14:47 | NUR ---
PATIENT RESTED IN BED, UP FOR MEALS AND WENT ON RIDE ON MEDICAL FLOOR TO GET OUT OF THE ROOM. PATIENT ABLE TO USE CALL LIGHT AND LETS NEEDS BE KNOWN. NO CONCERNS, WAITING FOR PLACEMENT
[2024-10-30 15:41] VITALS: BP 125/76
[2024-10-31] MEDS ORDERED: DULoxetine HCL 60 MG Capsule DR PO SCH (09:00)
== END 2024-10-30 18:06 | DRG 65 ==
LOC: ER 14:32 → MEDS 18:43 → ERHOLD 18:43 → MEDS 23:58
PROVIDERS: Nurse Practitioner Acute Care; Physician Assistant; ADMIT Student in an Organized Health Care Education/Training Program
DX: I63.89 Other cerebral infarction (principal); E87.1 Hypo-osmolality and hyponatremia; G81.94 Hemiplegia, unspecified affecting left nondominant side; I25.10 Atherosclerotic heart disease of native coronary artery without angina pectoris; I10 Essential (primary) hypertension; E78.5 Hyperlipidemia, unspecified; G47.33 Obstructive sleep apnea (adult) (pediatric); B18.2 Chronic viral hepatitis C; K74.69 Other cirrhosis of liver; F32.A Depression, unspecified; R29.810 Facial weakness; E11.40 Type 2 diabetes mellitus with diabetic neuropathy, unspecified; E11.51 Type 2 diabetes mellitus with diabetic peripheral angiopathy without gangrene; R29.702 NIHSS score 2; R47.81 Slurred speech; I65.22 Occlusion and stenosis of left carotid artery; E11.65 Type 2 diabetes mellitus with hyperglycemia; D64.9 Anemia, unspecified; E86.0 Dehydration; E66.01 Morbid (severe) obesity due to excess calories; K21.9 Gastro-esophageal reflux disease without esophagitis; E11.69 Type 2 diabetes mellitus with other specified complication; R47.1 Dysarthria and anarthria; R33.9 Retention of urine, unspecified; Z79.4 Long term (current) use of insulin; Z87.891 Personal history of nicotine dependence; I25.2 Old myocardial infarction; Z79.82 Long term (current) use of aspirin; Z79.02 Long term (current) use of antithrombotics/antiplatelets; Z79.85 Long-term (current) use of injectable non-insulin antidiabetic drugs; Z68.34 Body mass index [BMI] 34.0-34.9, adult; Z98.61 Coronary angioplasty status
CPT/HCPCS: 36415; 70450; 70496; 70498; 70551; 80048; 80053; 82947; 85025; 92526; 92610; 93005; 93010; 94762; 96361; 96374; 97110; 97112; 97162; 97166; 97530; 99285-25; A9270; C8929; G0378; J1650; J1815; J7030; Q9957; Q9967

== ENCOUNTER 2024-12-18 19:36 | Emergency (ER) | payer MEDICARE, BC ==
[~2024-12-18] VITALS: Ht 180.3 cm; Wt 113.4 kg
[~2024-12-18 19:36] MED LIST changes: +FARXIGA10 MG PO
[2024-12-18] MEDS ORDERED: FentaNYL Citrate 50 MCG/ML 2 ML Injection IV ONE ×2 (20:05→22:10)
[2024-12-18 20:50] LABS: BASOPHILS ABSOLUTE AUTO 0.04 K/mm3 (0.00-0.23); BASOPHILS PERCENT AUTO 1 % (0-2); EOSINOPHILS ABSOLUTE AUTO 0.28 K/mm3 (0.00-0.68); EOSINOPHILS PERCENT AUTO 4 % (0-6); Hematocrit 41.9 % (37.0-53.0); Hemoglobin 12.9 g/dL (13.5-17.5); IMMATURE GRAN ABSOLUTE AUTO 0.02 K/mm3 (0.00-0.10); IMMATURE GRAN PERCENT AUTO 0 % (0-1); LYMPHOCYTES ABSOLUTE AUTO 1.48 K/mm3 (0.84-5.20); LYMPHOCYTES PERCENT AUTO 19 % (21-46); MONOCYTES ABSOLUTE AUTO 0.71 K/mm3 (0.16-1.47); MONOCYTES PERCENT AUTO 9 % (4-13); Mean Corpuscular HGB Conc 30.8 g/dL (31.5-36.5); Mean Corpuscular Volume 78 fL (80-100); NEUTROPHILS ABSOLUTE AUTO 5.41 K/mm3 (1.96-9.15); NEUTROPHILS PERCENT AUTO 68 % (41-73); NRBC ABSOLUTE 0.00 K/mm3 (0.00-0.02); NRBC Auto 0.0 /100 WBC (0.0-0.2); Platelet Count 219 K/mm3 (150-400); RDW Coefficient Variation 16.9 % (11.7-14.2); RDW Standard Deviation 47.8 fL (35.1-46.3)
[2024-12-18 20:57] LABS: Prothrombin Time Results 11.7 Sec (9.7-11.5)
[2024-12-18 21:02] LABS: Alanine Aminotransfer (ALT/SGP 26.0 U/L (12-78); Albumin, Blood 3.5 g/dL (3.4-5.0); Albumin/Globulin Ratio 0.9 (0.8-1.8); Anion Gap 8.0 mmol/L (3-11); Aspartate Aminotrans (AST/SGOT 18.0 U/L (12-37); Bilirubin, Total 0.5 mg/dL (0.1-1.0); Blood Urea Nitrogen 20.0 mg/dL (8-24); CO2, Blood 29.0 mmol/L (21-32); Calcium, Blood 9.5 mg/dL (8.5-10.1); Chloride, Blood 101.0 mmol/L (98-108); Creatinine, Blood 0.77 mg/dL (0.60-1.20); Globulin, Blood 3.9 g/dL (2.2-4.0); Glucose, Blood 224.0 mg/dL (70-99); Potassium, Blood 4.4 mmol/L (3.5-5.5); Sodium, Blood 134.0 mmol/L (136-145); Total Protein, Blood 7.4 g/dL (6.4-8.2)
[2024-12-18 22:11] VITALS: BP 151/75
[2024-12-18] MEDS ORDERED: OXAYDO5 M1 PO (23:36)
[2024-12-18] MEDS ORDERED: CEPH500 PO (23:36)
== END 2024-12-19 00:01 | disposition home or self-care (01) ==
LOC: ER 19:36
PROVIDERS: Student in an Organized Health Care Education/Training Program
DX: S52.022A Displaced fracture of olecranon process without intraarticular extension of left ulna, initial encounter for closed fracture (principal); S62.122A Displaced fracture of lunate [semilunar], left wrist, initial encounter for closed fracture; S70.02XA Contusion of left hip, initial encounter; S80.02XA Contusion of left knee, initial encounter; Z23 Encounter for immunization; E11.65 Type 2 diabetes mellitus with hyperglycemia; Z79.4 Long term (current) use of insulin; Z79.899 Other long term (current) drug therapy; Z79.82 Long term (current) use of aspirin; Z87.891 Personal history of nicotine dependence; W17.89XA Other fall from one level to another, initial encounter
CPT/HCPCS: 12001; 70450; 72125; 73080; 73502; 73560-LT; 80053; 85025; 85610; 85730; 90471; 90715; 96374-59; 96376-59; 99284-25; A9270; J3010